=== PATIENT | female | born 1975 | race Caucasian/White ===

== ENCOUNTER 2016-08-10 20:36 | Emergency (ER) ==
[2016-08-10] MEDS ORDERED: ASPIRIN PO STA (21:02)
[2016-08-10 21:20] LABS: INR 0.94; PTT 25.9 Seconds (22.0-36.0)
[2016-08-10 21:30] LABS: ALBUMIN 4.1 g/dL (3.5-5.0); CALCIUM 9.5 mg/dL (8.8-10.2); MAGNESIUM 1.9 mg/dL (1.5-2.7); POTASSIUM 3.8 mmol/L (3.5-5.1); TOTAL BILIRUBIN 0.44 mg/dL (0.20-1.00); TOTAL PROTEIN 7.8 g/dL (6.3-8.3)
[2016-08-10 22:11] LABS: MANUAL DIFF NEEDED? NO
[2016-08-10 22:12] LABS: BASO% 0.6 % (0.0-0.8); EOS# 0.17 X1000 (0.0-0.7); EOS% 2.2 % (0.0-10.0); HEMATOCRIT 40.9 % (37.0-47.0); HEMOGLOBIN 14.6 g/dL (12.0-16.0); LYMPH# 2.35 X1000 (1.2-3.4); MCH 31.9 PG (27-31); MCHC 35.7 g/dL (33-37); MCV 89.3 FL (81-99); MONO# 0.57 X1000 (0.11-0.59); MONO% 7.3 % (1.7-9.3); MPV 10.3 FL (7.4-10.4); NEUT% 59.9 % (42.2-75.2); PLT 264 X1000 (130-400); RBC 4.58 XMIL (4.2-5.4)
--- NOTE | 2016-08-10 23:32 | ED EKG INTERP ---
EKG Interpretation - EKG Time of EKG reading by physician:: 20:44 EKG Read and Signed by:: Collins Baldwin EKG Interpretation (*Must complete 3 of following elements*): Normal Rate: 79 Rhythm: NSR [place]: normal QRS: normal SC Interval: normal ST Wave: normal Attestation - Scribe Verification/Attestation Scribe:: Rosa Calero Acting as Scribe for:: Collins Baldwin Scribe documention review:: This chart was documented by a scribe and accurately reflects the service the provider performed and the decisions made by the provider. Physician Attestation - Physician Attestation I, the provider, attest to the following statement:: Collins Baldwni Physician documentation Attestation:: This documentation recorded by the scribe accurately reflects the service I personally performed and the decisions made by me.
[2016-08-11 00:01] VITALS: BP 112/71
--- NOTE | 2016-08-11 00:07 | PROVIDER DOCUMENTATION ---
HPI-Chest Pain - General Chief Complaint: Chest Pain Stated Complaint: CONGESTION, CP, LT SHOULDER BURNING FEELING Time Seen by Provider: 08/10/16 22:30 Source: patient Allergies/Adverse Reactions: Patient Allergies Allergy/AdvReac Type Severity Reaction Status Date / Time No Known Allergies Allergy Verified 08/10/16 20:53 Home Medications: Home Medication List Medication Instructions Recorded Confirmed Last Taken Type No Home Medications 09/05/14 08/10/16 Unknown History - History of Present Illness-CP Nature of Presenting Problem: PT IS A 40YOF PRESENTING TO THE ED C/O CP. PT STATES 2-3 DAY HX OF CP. PT STATES IT IS INTERMITTENT WITH REST AND EXERTION. SHE DENIES AND N/V/D, DIAPHORESIS OR FEVER. NO OTHER COMPLAINTS AT THIS TIME Location: reports: substernal Chest Pain Radiation: reports: shoulders (LEFT) Quality of Pain: reports: burning Severity in ED: moderate Onset/Duration: 3 days ago Timing: intermittent Context/Activities at Onset: reports: light activity Modifying Factors: improves with: nothing Associated Symptoms: denies: abdominal pain, back pain, diaphoresis, dizziness, fatigue, nausea, shortness of breath, vomiting Nitro Today/Relief: no nitro taken today Aspirin Treatment Today: no aspirin today Prior Chest Pain/Cardiac Workup: reports: no prior chest pain Similar Symptoms Previously?: No Recently Seen Here or By Another Healthcare Provider: No Review of Systems - Adult - REVIEW OF SYSTEMS - ADULT Constitutional: reports: no symptoms reported Eyes: reports: no symptoms reported Ears, Nose, Mouth & Throat: reports: no symptoms reported Cardiovascular: reports: see HPI, chest pain. denies: heart murmur, poor circulation, syncope Respiratory: reports: no symptoms reported Gastrointestinal: reports: no symptoms reported Genitourinary: reports: no symptoms reported Musculoskeletal: reports: no symptoms reported Integumentary: reports: no symptoms reported Neurological: reports: no symptoms reported Psychiatric: reports: no symptoms reported Endocrine: reports: no symptoms reported Hematologic/Lymphatic: reports: no symptoms reported Allergic/Immunologic: reports: no symptoms reported All Other Systems: Reviewed and Negative Past History - Adult - PAST MEDICAL HISTORY-ADULT Review of Records: reports: Old Records Reviewed, Nursing Assessment Review, Medications Reviewed, Social history reviewed & non-contributory. Major Childhood Illnesses: reports: denies history Cardiovascular: reports: other (previous palpitations/diagnosed with GERD) Respiratory: reports: denies history Gastrointestinal: reports: denies history Obstetrical/Gynecological: reports: denies history Genitourinary: reports: denies history Musculoskeletal: reports: denies history Neurological: reports: denies history Psychiatric: reports: denies history Endocrine/Immune: reports: denies history Other Conditions: reports: denies history - PRIOR SURGERIES/PROCEDURES Surgical/Procedure History: reports: (x's 2) - IMMUNIZATION STATUS Childhood Immunizations: UTD, See Nurse Assessment Flu Vaccine: See Nurse Assessment - FAMILY HISTORY Family History: CAD under 55yo (paternal and maternal incidence; hx of mvp Mother) - SOCIAL HISTORY Smoking: denies, non-smoker Substance Use: none/never, denies Alcohol Use Frequency: never Living Situation: family Physical Exam-General - PHYSICAL EXAM-ADULT Initial Vital Signs Reviewed: Yes - CONSTITUTIONAL General Appearance: appears well, alert, mild distress - EYES Eyes: PERRL/EOMI, pink conjunctivae - HEAD, EARS, NOSE, MOUTH & THROAT HENMT: normocephalic/atraumatic, moist mucous membranes, normal ENT inspection, TMs normal, pharynx normal - NECK Neck: non-tender, full range of motion, supple, normal inspection - RESPIRATORY Respiratory: chest non-tender, lungs clear, normal breath sounds, no pleuratic chest pain, no respiratory distress, no accessory muscle use - CARDIOVASCULAR Cardiovascular: normal peripheral pulses, regular rate, rhythm, no edema, no gallop, no JVD, no murmur - GASTROINTESTINAL (ABDOMEN) Abdominal Exam: normal bowel sounds, non tender, soft, no organomegaly, no pulsatile mass - MUSCULOSKELETAL Back Exam: normal inspection, no CVA tenderness, no vertebral tenderness Extremity: normal range of motion, non-tender, normal gait, normal inspection, no pedal edema, no calf tenderness, normal capillary refill, pelvis stable - SKIN Integumentary: normal color, normal turgor, warm/dry - NEUROLOGIC Neurologic: transition program manager II-XII nml as tested, grossly normal, no motor/sensory deficits - PSYCHIATRIC Psych/Mental Status: normal mood/affect, normal thought content, normal thought process, oriented x 3 Progress - PLAN OF CARE/RESULTS Progress/Plan/Lab Results: Laboratory Tests 08/10/16 08/10/16 08/10/16 20:52 20:52 20:52 WBC RBC Hgb Hct MCV MCH MCHC RDW Std Deviation Plt Count MPV Immature Gran % (Auto) Neut % (Auto) Lymph % (Auto) [place] % (Auto) Eos % (Auto) Baso % (Auto) Immature Gran # (Auto) Neut # (Auto) Lymph # (Auto) [place] # (Auto) Eos # (Auto) Baso # (Auto) PT 10.0 INR 0.94 PTT (Actin FS) 25.9 D-Dimer 0.33 Sodium 141 Potassium 3.8 Chloride 102 Carbon Dioxide 27 Anion Gap 12 BUN 24 H Creatinine 1.1 H Estimated GFR/1.73 m2 55 BUN/Creatinine Ratio 22 Glucose 87 Calculated Osmolality 285 Calcium 9.5 Magnesium 1.9 Total Bilirubin 0.44 AST 17 ALT 15 Alkaline Phosphatase 56 Creatine Kinase Troponin T Lfs-V-Dnqprgbgjrg Pept Total Protein 7.8 Albumin 4.1 Globulin 3.7 Albumin/Globulin Ratio 1.1 08/10/16 08/10/16 08/10/16 20:52 20:52 20:52 WBC RBC Hgb Hct MCV MCH MCHC RDW Std Deviation Plt Count MPV Immature Gran % (Auto) Neut % (Auto) Lymph % (Auto) [place] % (Auto) Eos % (Auto) Baso % (Auto) Immature Gran # (Auto) Neut # (Auto) Lymph # (Auto) [place] # (Auto) Eos # (Auto) Baso # (Auto) PT INR PTT (Actin FS) D-Dimer Sodium Potassium Chloride Carbon Dioxide Anion Gap BUN Creatinine Estimated GFR/1.73 m2 BUN/Creatinine Ratio Glucose Calculated Osmolality Calcium Magnesium Total Bilirubin AST ALT Alkaline Phosphatase Creatine Kinase 75 Troponin T < 0.010 Hts-E-Gebjzchfozy Pept 60 Total Protein Albumin Globulin Albumin/Globulin Ratio 08/10/16 20:52 WBC 7.83 RBC 4.58 Hgb 14.6 Hct 40.9 MCV 89.3 MCH 31.9 H MCHC 35.7 RDW Std Deviation 12.3 Plt Count 264 MPV 10.3 Immature Gran % (Auto) 0.0 Neut % (Auto) 59.9 Lymph % (Auto) 30.0 [place] % (Auto) 7.3 Eos % (Auto) 2.2 Baso % (Auto) 0.6 Immature Gran # (Auto) 0.00 Neut # (Auto) 4.69 Lymph # (Auto) 2.35 [place] # (Auto) 0.57 Eos # (Auto) 0.17 Baso # (Auto) 0.05 PT INR PTT (Actin FS) D-Dimer Sodium Potassium Chloride Carbon Dioxide Anion Gap BUN Creatinine Estimated GFR/1.73 m2 BUN/Creatinine Ratio Glucose Calculated Osmolality Calcium Magnesium Total Bilirubin AST ALT Alkaline Phosphatase Creatine Kinase Troponin T Vhq-U-Ivopjlwbscl Pept Total Protein Albumin Globulin Albumin/Globulin Ratio Orders Category Date Time Status Cardiac Monitoring DIRECTED Care 08/10/16 21:02 Active Saline Loc NOW Care 08/10/16 21:02 Active CHEST-2 VIEWS [RAD] Stat Exams 08/10/16 21:02 Taken CBC WITH ELECTRONIC DIFF [HEME] Stat Lab 08/10/16 20:52 Completed CK PROFILE [SP CHEM] Stat Lab 08/10/16 20:52 Completed COMPREHENSIVE METABOLIC PANEL [CHEM] Stat Lab 08/10/16 20:52 Completed D-DIMER [CHEM] Stat Lab 08/10/16 20:52 Completed MAGNESIUM [CHEM] Stat Lab 08/10/16 20:52 Completed PRO B-NATRIURETIC PEPTIDE Stat Lab 08/10/16 20:52 Completed PROTIME WITH INR [COAG] Stat Lab 08/10/16 20:52 Completed PTT [COAG] Stat Lab 08/10/16 20:52 Completed TROPONIN T Stat Lab 08/10/16 20:52 Completed Aspirin Med 08/10/16 21:02 Discontinued 325 mg PO STAT STA EKG [EKG] Stat Ther 08/10/16 21:02 Ordered Vital Signs - 24 hr 08/10/16 08/11/16 20:43 00:01 Temperature 98.1 F 97.9 F Pulse Rate 81 73 Respiratory 16 19 Rate Blood Pressure 141/88 112/71 O2 Sat by Pulse 100 97 Oximetry - REASSESSMENT Reassessment #1 Time Reassessed: 00:07 Status: improving - XRAY 1 XRAY: Bilateral XRAY Study: Chest Impression: Normal Departure - Departure Time of Disposition Order: 23:45 DIAGNOSIS: chest wall pain Disposition: HOME 01 Certified Medical Emergency: Emergent Condition: Good Additional Instructions: ED Follow Up Instructions: You have been treated by a care provider in the Emergency Department. These instructions are being provided to you so you can have an understanding of how to care for yourself upon discharge. Upon discharge from the Emergency Department, you are responsible for making arrangements for follow-up care by a physician of your choice. Take all prescribed medications as directed. Return to the Emergency Department immediately for any new or worsening symptoms. You may call the Physician Referral phone number at [phone] to obtain a list of Physicians who are taking new patients. Referrals: Rehan Lopes MD [Primary Care Provider] - Instructions: Chest Wall Pain, Wist-sv-Ybyl Attestation - Scribe Verification/Attestation Scribe:: Rosa Calero Acting as Scribe for:: Collins Baldwin Scribe documention review:: This chart was documented by a scribe and accurately reflects the service the provider performed and the decisions made by the provider. Physician Attestation - Physician Attestation I, the provider, attest to the following statement:: Collins Baldwin Physician documentation Attestation:: This documentation recorded by the scribe accurately reflects the service I personally performed and the decisions made by me.
--- NOTE | 2016-08-11 06:11 | EKG Report ---
Test Performed on : 08/10/2016 8:44:15 PM Test Reason : Chest Pain Blood Pressure : / mmHG Vent. Rate : 079 BPM Atrial Rate : 079 BPM P-R Int : 170 ms QRS Dur : 082 ms QT Int : 362 ms P-R-T Axes : 067 046 050 degrees QTc Int : 415 ms Normal sinus rhythm. Normal ECG When compared with ECG of 05-SEP-2014 12:47, No significant change was found Unconfirmed Result
--- NOTE | 2016-08-11 08:17 | Diag Imaging Result Document ---
PROCEDURE NAME: CHEST-2 VIEWS - 08/10/2016 TWO VIEWS OF THE CHEST: FINDINGS: There has been no significant change in the appearance of the chest since 09/05/2014. IMPRESSION: Stable chest.
== END 2016-08-11 00:14 | disposition home or self-care (01) ==
LOC: ED 20:36
DX: R07.89 Other chest pain (principal); M25.512 Pain in left shoulder; R09.81 Nasal congestion; Z82.49 Family history of ischemic heart disease and other diseases of the circulatory system
CPT/HCPCS: 71020; 80053; 82550; 83735; 83880; 84484; 85025; 85379; 85610; 85730; 93005